=== PATIENT | male | born 1950 | race Caucasian/White ===

== ENCOUNTER → 2020-04-02 | Outpatient (CLI) | payer MEDICARE ==
[~2020-04-02] MED LIST: AMOXICILLIN250 MG PO; ARICEPT5 MG PO; BUPROPION HCL100 MG PO; BUTALB-ACETAMI1 EACH PO; CENTRUM SILVER1 EAC1 PO; CETIRIZINE HCL10 MG PO; CHOLESTYRAMINE L4 GM PO; CITALOPRAM HBR20 MG PO; FISH OIL500 MG PO; FLUTICASONE PRO16 GM; GABAPENTIN300 MG PO; LEXAPRO10 MG PO; METOPROLOL TART25 MG PO; NAMENDA PO; NAMENDA10 MG PO; OMEGA-3 1,0001 EACH PO; OSTEO BI-FLEX1 EAC2 PO; PLAVIX75 MG PO; PRAVASTATIN SOD20 MG PO; QUALAQUIN324 MG PO; QUESTRAN PACKET4 GM PO; TYLENOL PO; ULTRAM 50MG50 MG PO
--- NOTE | 2020-04-02 14:46 | Diagnostic Imaging Report ---
EXAM: CT ABDOMEN AND PELVIS WITHOUT CONTRAST FOR RENAL STONES CLINICAL INDICATION: Hematuria, right flank pain TECHNIQUE: CT abdomen and pelvis was performed, without IV or oral contrast, as per department renal stone protocol. Axial, sagittal, and coronal reconstructions were obtained. IV CONTRAST: Not administered, limiting sensitivity of this exam for evaluation of solid visceral organs, vascular structures, and retroperitoneum. ORAL CONTRAST:Not administered, limiting sensitivity of this exam for evaluation of bowel, retroperitoneum, and intraabdominal fluid collections. RADIATION DOSE REDUCTION: This exam was performed according to the departmental dose-optimization program which includes automated exposure control, adjustment of the mA and/or kV according to patient size and/or use of iterative reconstruction technique. COMPARISON: None FINDINGS: LOWER CHEST: No acute pathologic process in imaged portion of lower chest. There is coronary artery calcification. RIGHT KIDNEY: 7.2 cm in maximum craniocaudad dimension. Possible small exophytic cortical renal cyst too small to characterize. A nonobstructive calcific density measuring approximately 6 mm in the midpole likely representing a calculus. No significant perinephric stranding. RIGHT URETER: Normal course and caliber. No ureterolithiasis. LEFT KIDNEY: Maximum craniocaudad dimension is 8.4 cm. No calculus or other significant abnormality otherwise. LEFT URETER: Normal course and caliber. No ureterolithiasis. URINARY BLADDER: Unremarkable. No calculi. Impression on the bladder base from an enlarged prostate. LIVER: There is diffuse fatty infiltration of the liver. GALLBLADDER: Cholecystectomy clips. BILE DUCTS: No pathologic process. PANCREAS: No pathologic process. SPLEEN: No pathologic process. ADRENALS: A tiny 8 mm nodule in the medial limb of the right adrenal gland measuring 17 Hounsfield units on this exam. Left adrenal unremarkable. GASTROINTESTINAL TRACT: No pathologic process. APPENDIX: No inflammatory changes in region of appendix.] LYMPH NODES: No lymphadenopathy. PERITONEUM/MESENTERY: No free air, significant free fluid, mass or fluid collection. VESSELS: No significant vascular abnormality. ADDITIONAL RETROPERITONEAL FINDINGS: None. REPRODUCTIVE ORGANS: Prominent prostate ABDOMINAL AND PELVIC SORENSON: No pathologic process. MUSCULOSKELETAL: No aggressive lesions. ADDITIONAL FINDINGS: None. IMPRESSION: No evidence of obstructive urinary tract calculi. A small nonobstructive calculus in the right kidney measuring approximately 6 mm. Bilaterally small kidneys. Suspect medical renal disease. Enlarged prostate. Coronary artery calcification. Diffuse fatty infiltration of the liver. Incidental subcentimeter solid right adrenal nodule, probably benign. Imaging follow-up is recommended. Standardized Report: [id number]. Signed by: Manny Benitez MD on 04/02/2020 2:43 PM
== END ==
LOC: CT 13:40
PROVIDERS: ATTEND Urology
DX: N20.0 Calculus of kidney (principal)
CPT/HCPCS: 74176

== ENCOUNTER → 2020-05-14 | Day surgery (SDC) | payer MEDICARE ==
[2020-05-08 10:35] LABS: BASOPHILS % 0.5 % (0.0-1.0); EOSINOPHILS # (AUTO) 0.1 (0.0-0.4); EOSINOPHILS % 0.7 % (0.0-6.0); HEMOGLOBIN 15.5 g/dL (14.0-18.0); LYMPHOCYTES % 27.2 % (18.0-39.1); MEAN CORPUSCULAR HGB CONC 34.4 g/dL (31-35); MEAN CORPUSCULAR VOLUME 92.8 fL (81-99); MONOCYTES # (AUTO) 0.7 (0.2-0.8); MONOCYTES % 9.1 % (4.4-11.3); NEUTROPHILS # (AUTO) 4.7 (2.1-6.9); NEUTROPHILS % 62.1 % (38.7-80.0); PLATELET COUNT 225 x10e3/uL (140-360); RED BLOOD COUNT 4.85 x10e6/uL (4.3-5.7); RED CELL DISTRIBUTION WIDTH 12.8 % (11.7-14.4)
[2020-05-08 11:26] LABS: ANION GAP 14.1 mmol/L (8-16); BLOOD UREA NITROGEN 12 mg/dL (7-26); BUN/CREATININE RATIO 12 (6-25); CARBON DIOXIDE 23 mmol/L (22-29); CHLORIDE 104 mmol/L (98-107); CREATININE, SERUM 1.02 mg/dL (0.72-1.25); EST GLOMERULAR FILTRATION RATE > 60 ML/MIN (60-); GLUCOSE 119 mg/dL (74-118); POTASSIUM 4.1 mmol/L (3.5-5.1); SODIUM 137 mmol/L (136-145)
[~2020-05-14] MED LIST changes: +AMPICILLIN SOD 1 GM/NS 50ML 100 ML IV ONE; +B&O 60MG R/S 60 MG SUPP PR ONE; +DEXAMETHASONE SOD PHOS INJ 4 MG/ML VIAL ONE; +FAMOTIDINE20 MG PO; +FENTANYL CITRATE/PF 100MCG/2 ML INJ ONE; +FOLIC ACID PO; +GENTAMICIN 80MG/NS 100 ML 200 ML IV ONE; +HUMIRA20 MG/0.4 SC; +HYDROCODON-ACE1 EA11 PO; +IOPAMIDOL 300MG/ML 50ML INFUS..BTL IV ONE; +LIDOCAINE HCL 2% LOCAL INJ 5 ML SDV VIAL INJ ONE; +METHOTREXATE2.5 MG PO; +MIDAZOLAM HCL 2 MG/2 ML VIAL ONE; +NAMENDA5 MG PO; +ONDANSETRON HCL INJ 2MG/ML 2ML 2 MG/ML VIAL ONE; +PROPOFOL IV EMULSION 10 MG/ML 20 ML VIAL ONE; +PROTONIX20 MG PO; +SEVOFLURANE INHAL SOLN 250 ML PEN BTL ONE; +XARELTO20 MG PO
[2020-05-14 09:15] VITALS: BP 136/62
== END | disposition home or self-care (01) ==
LOC: OR 05:25
PROVIDERS: ATTEND Urology
DX: N20.0 Calculus of kidney (principal); N39.0 Urinary tract infection, site not specified; N35.919 Unspecified urethral stricture, male, unspecified site; N40.0 Benign prostatic hyperplasia without lower urinary tract symptoms; N32.89 Other specified disorders of bladder; G47.33 Obstructive sleep apnea (adult) (pediatric); I10 Essential (primary) hypertension; K21.9 Gastro-esophageal reflux disease without esophagitis; K44.9 Diaphragmatic hernia without obstruction or gangrene; Z01.810 Encounter for preprocedural cardiovascular examination; Z01.812 Encounter for preprocedural laboratory examination; Z01.818 Encounter for other preprocedural examination; Z20.828 Contact with and (suspected) exposure to other viral communicable diseases; Z86.73 Personal history of transient ischemic attack (TIA), and cerebral infarction without residual deficits; Z86.711 Personal history of pulmonary embolism
CPT/HCPCS: 36415; 52332; 71046; 74018; 80048; 83970; 84550; 85025; 93005; C1758; C2617; J0290; J1100; J1580; J2001; J2405; J2704; J3010; Q9967; U0002 ×2

== ENCOUNTER → 2021-01-29 | Outpatient (CLI) | payer MEDICARE ==
[~2021-01-29] MED LIST changes: -AMPICILLIN SOD 1 GM/NS 50ML 100 ML IV ONE; -B&O 60MG R/S 60 MG SUPP PR ONE; -DEXAMETHASONE SOD PHOS INJ 4 MG/ML VIAL ONE; -FENTANYL CITRATE/PF 100MCG/2 ML INJ ONE; -GENTAMICIN 80MG/NS 100 ML 200 ML IV ONE; -IOPAMIDOL 300MG/ML 50ML INFUS..BTL IV ONE; -LIDOCAINE HCL 2% LOCAL INJ 5 ML SDV VIAL INJ ONE; -MIDAZOLAM HCL 2 MG/2 ML VIAL ONE; -ONDANSETRON HCL INJ 2MG/ML 2ML 2 MG/ML VIAL ONE; -PROPOFOL IV EMULSION 10 MG/ML 20 ML VIAL ONE; -SEVOFLURANE INHAL SOLN 250 ML PEN BTL ONE
== END ==
LOC: RAD 12:21
PROVIDERS: ATTEND Urology
DX: N20.0 Calculus of kidney (principal)
CPT/HCPCS: 74018

== ENCOUNTER → 2021-03-05 | Day surgery (SDC) | payer MEDICARE ==
[2021-03-03 09:33] LABS: BASOPHILS % 0.4 % (0.0-1.0); EOSINOPHILS # (AUTO) 0.1 (0.0-0.4); EOSINOPHILS % 1.3 % (0.0-6.0); HEMATOCRIT 43.9 % (38.2-49.6); HEMOGLOBIN 15.3 g/dL (14.0-18.0); LYMPHOCYTES % 26.4 % (18.0-39.1); MEAN CORPUSCULAR HEMOGLOBIN 32.1 pg (28-32); MEAN CORPUSCULAR HGB CONC 34.9 g/dL (31-35); MONOCYTES # (AUTO) 0.8 (0.2-0.8); MONOCYTES % 10.9 % (4.4-11.3); NEUTROPHILS # (AUTO) 4.5 (2.1-6.9); NEUTROPHILS % 60.5 % (38.7-80.0); PLATELET COUNT 218 x10e3/uL (140-360); RED BLOOD COUNT 4.77 x10e6/uL (4.3-5.7); RED CELL DISTRIBUTION WIDTH 12.6 % (11.7-14.4)
[~2021-03-05] MED LIST changes: +BENADRYL25 M1 PO; +CALCIUM PO; +FLOMAX0.4 MG PO; +HYDROCODON-ACE1 EA12 PO; +OXYBUTYNIN CHLOR5 MG PO; +VITAMIN D310 MCG PO; +XYZAL5 MG PO
[2021-03-05 07:45] VITALS: BP 139/83
== END | disposition home or self-care (01) ==
LOC: OR 06:11
PROVIDERS: ATTEND Internal Medicine Gastroenterology
DX: Z09 Encounter for follow-up examination after completed treatment for conditions other than malignant neoplasm (principal); Z86.010 Personal history of colon polyps; K64.8 Other hemorrhoids; Z71.3 Dietary counseling and surveillance; G47.33 Obstructive sleep apnea (adult) (pediatric); E78.5 Hyperlipidemia, unspecified; I10 Essential (primary) hypertension; E66.01 Morbid (severe) obesity due to excess calories; I44.0 Atrioventricular block, first degree; N20.0 Calculus of kidney; Z86.73 Personal history of transient ischemic attack (TIA), and cerebral infarction without residual deficits; G30.9 Alzheimer's disease, unspecified; F02.80 Dementia in other diseases classified elsewhere, unspecified severity, without behavioral disturbance, psychotic disturbance, mood disturbance, and anxiety; Z01.810 Encounter for preprocedural cardiovascular examination; Z01.812 Encounter for preprocedural laboratory examination; Z20.822 Contact with and (suspected) exposure to COVID-19; Z79.02 Long term (current) use of antithrombotics/antiplatelets; Z68.41 Body mass index [BMI] 40.0-44.9, adult; Z87.891 Personal history of nicotine dependence
CPT/HCPCS: 36415; 45378; 85025; 93005; U0002

== ENCOUNTER → 2022-02-17 | Outpatient (CLI) | payer MEDICARE | LOC: CT 09:33 | PROVIDERS: ATTEND Urology | DX: N20.0 Calculus of kidney (principal) | CPT/HCPCS: 74176 ==

== ENCOUNTER → 2022-09-30 | Day surgery (SDC) | payer MEDICARE ==
[2022-09-27 12:38] LABS: BASOPHILS % 0.4 % (0.0-1.0); EOSINOPHILS # (AUTO) 0.1 (0.0-0.4); EOSINOPHILS % 0.8 % (0.0-6.0); HEMATOCRIT 45.7 % (38.2-49.6); LYMPHOCYTES # (AUTO) 2.2 (1.0-3.2); LYMPHOCYTES % 29.9 % (18.0-39.1); MEAN CORPUSCULAR HEMOGLOBIN 30.4 pg (28-32); MEAN CORPUSCULAR HGB CONC 32.8 g/dL (31-35); MEAN CORPUSCULAR VOLUME 92.5 fL (81-99); MONOCYTES # (AUTO) 0.6 (0.2-0.8); MONOCYTES % 8.6 % (4.4-11.3); NEUTROPHILS # (AUTO) 4.3 (2.1-6.9); NEUTROPHILS % 59.9 % (38.7-80.0); PLATELET COUNT 220 x10e3/uL (140-360); RED BLOOD COUNT 4.94 x10e6/uL (4.3-5.7); RED CELL DISTRIBUTION WIDTH 14.2 % (11.7-14.4)
[~2022-09-30] MED LIST changes: +DOXYCYCLINE HY100 MG PO; +FEROSUL325 MG PO; +LACTATED RINGER'S 1,000 ML ONE; +LIDOCAINE HCL 2% LOCAL INJ 5 ML SDV VIAL INJ ONE; +METRONIDAZOLE250 MG TOP; +MYRBETRIQ50 MG PO; +PROPOFOL IV EMULSION 10 MG/ML 20 ML VIAL ONE; +PROVENTIL HFA6.7 GM INH
[2022-09-30 08:13] VITALS: TEMP 97.4
[2022-09-30 08:33] VITALS: BP 143/71; PULSE 71; RESP 18; O2SAT 98
== END | disposition home or self-care (01) ==
LOC: OR 08:36
PROVIDERS: ATTEND Internal Medicine Gastroenterology
DX: D50.9 Iron deficiency anemia, unspecified (principal); K29.50 Unspecified chronic gastritis without bleeding; K55.20 Angiodysplasia of colon without hemorrhage; K64.8 Other hemorrhoids; G47.33 Obstructive sleep apnea (adult) (pediatric); E78.5 Hyperlipidemia, unspecified; I10 Essential (primary) hypertension; I69.311 Memory deficit following cerebral infarction; M06.9 Rheumatoid arthritis, unspecified; G30.9 Alzheimer's disease, unspecified; F02.80 Dementia in other diseases classified elsewhere, unspecified severity, without behavioral disturbance, psychotic disturbance, mood disturbance, and anxiety; Z01.810 Encounter for preprocedural cardiovascular examination; Z01.812 Encounter for preprocedural laboratory examination; Z79.02 Long term (current) use of antithrombotics/antiplatelets; Z79.899 Other long term (current) drug therapy; Z86.711 Personal history of pulmonary embolism
CPT/HCPCS: 36415; 43239; 45378; 85025; 88304; 88305; 88312; 88342; 93005; J2001

== ENCOUNTER → 2023-08-17 | Day surgery (SDC) | payer MEDICARE ==
[2023-08-16 11:50] LABS: BASOPHILS % 0.3 % (0.0-1.0); EOSINOPHILS % 0.2 % (0.0-6.0); HEMATOCRIT 43.9 % (38.2-49.6); HEMOGLOBIN 15.3 g/dL (14.0-18.0); LYMPHOCYTES # (AUTO) 1.8 (1.0-3.2); LYMPHOCYTES % 18.5 % (18.0-39.1); MEAN CORPUSCULAR HEMOGLOBIN 32.6 pg (28-32); MEAN CORPUSCULAR HGB CONC 34.9 g/dL (31-35); MEAN CORPUSCULAR VOLUME 93.4 fL (81-99); MONOCYTES % 10.2 % (4.4-11.3); NEUTROPHILS # (AUTO) 6.7 (2.1-6.9); NEUTROPHILS % 70.4 % (38.7-80.0); PLATELET COUNT 238 x10e3/uL (140-360); RED CELL DISTRIBUTION WIDTH 12.6 % (11.7-14.4); WHITE BLOOD COUNT 9.47 x10e3/uL (4.8-10.8)
[2023-08-16 12:11] LABS: ANION GAP 14.4 mmol/L (8-16); CALCIUM 9.2 mg/dL (8.4-10.2); CREATININE, SERUM 0.97 mg/dL (0.72-1.25); POTASSIUM 4.4 mmol/L (3.5-5.1)
[~2023-08-17] MED LIST changes: +ACETAMINOPHEN 1000 MG/100 ML 100 ML IV ONE; +ACETAMINOPHEN/CODEINE 300MG - 30MG TAB ONE; +CEFUROXIME250 MG PO; +DEXAMETHASONE SOD PHOS INJ 4 MG/ML SDV ONE; +FENTANYL CITRATE/PF 100MCG/2 ML INJ ONE; +IOPAMIDOL 610MG/1ML 300 MG/ML VIAL IV ONE; -LACTATED RINGER'S 1,000 ML ONE; +ONDANSETRON HCL INJ 2MG/ML 2ML 2 MG/ML VIAL ONE; +SEVOFLURANE INHAL SOLN 250 ML PEN BTL ONE; +TIZANIDINE HCL4 M1 PO; +[UNRECOGNIZED DRUG - CODE]
[2023-08-17] MEDS: CEFTRIAXONE 1 GM VIAL ONE (08:15)
[2023-08-17] MEDS: LACTATED RINGER'S 1,000 ML ONE (08:15)
[2023-08-17] MEDS: GENTAMICIN 80MG/NS 100 ML 200 ML IV ONE (08:16)
[2023-08-17] MEDS: FENTANYL CITRATE/PF 100MCG/2 ML INJ IV ONE ×3 (10:24→10:35)
[2023-08-17] MEDS: ACETAMINOPHEN/CODEINE 300MG - 30MG TAB PO ONE (10:52)
[2023-08-17 11:15] VITALS: BP 136/70; PULSE 68; RESP 15; O2SAT 98
== END | disposition home or self-care (01) ==
LOC: OR 07:51
PROVIDERS: ATTEND Urology
DX: N40.1 Benign prostatic hyperplasia with lower urinary tract symptoms (principal); N13.8 Other obstructive and reflux uropathy; N39.0 Urinary tract infection, site not specified; N35.812 Other bulbous urethral stricture, male; N32.89 Other specified disorders of bladder; N32.3 Diverticulum of bladder; I10 Essential (primary) hypertension; E78.5 Hyperlipidemia, unspecified; J45.909 Unspecified asthma, uncomplicated; E66.9 Obesity, unspecified; K21.9 Gastro-esophageal reflux disease without esophagitis; M06.9 Rheumatoid arthritis, unspecified; F41.9 Anxiety disorder, unspecified; F03.90 Unspecified dementia, unspecified severity, without behavioral disturbance, psychotic disturbance, mood disturbance, and anxiety; Z01.810 Encounter for preprocedural cardiovascular examination; Z01.812 Encounter for preprocedural laboratory examination; Z01.818 Encounter for other preprocedural examination; Z86.73 Personal history of transient ischemic attack (TIA), and cerebral infarction without residual deficits; Z79.02 Long term (current) use of antithrombotics/antiplatelets; Z79.899 Other long term (current) drug therapy
CPT/HCPCS: 52005; C9740; 36415; 71046; 74420; 80048; 85025; 93005; C1758; J0696; J1100; J1580; J2001; J2405; L8699